=== PATIENT | female | born 1960 | race Caucasian/White ===

== ENCOUNTER 2020-06-26 08:21 | Outpatient (REF) | payer BC, SELFPAY ==
[2020-06-26 09:31] LABS: Alanine Aminotransferase 21 U/L (0-31); Albumin Level 4.3 g/dL (3.5-5.0); Alkaline Phosphatase 111 U/L (39-117); Anion Gap 12 (12-20); Aspartate Amino Transferase 17 U/L (5-31); Bilirubin Total 0.3 mg/dL (0.0-1.0); Blood Urea Nitrogen 18 mg/dL (9-16); Calcium 8.9 mg/dL (8.4-10.2); Carbon Dioxide 28 mmol/L (22-29); Chloride 108 mmol/L (96-108); Cholesterol 201 mg/dL; Estimated Glomerular Filt Rate > 60; Glucose Fasting 99 mg/dL (60-99); HDL Cholesterol 46 mg/dL; LDL Cholesterol Calculated 128 mg/dl; Potassium 5.5 mmol/l (3.3-5.1); Sodium 142 mmol/L (135-145); Total Protein 6.6 g/dL (6.5-8.0); Triglycerides 135 mg/dL
[2020-06-26 09:34] LABS: Estimated Average Glucose 94 mg/dL; Hemoglobin A1c % 4.9 %
[2020-06-26 09:50] LABS: TSH reflex Free T4 0.67 mIU/mL (0.32-4.0); Vitamin D 25-OH Total 23.2 ng/mL (>30)
== END 2020-06-26 08:22 | disposition home or self-care (01) ==
LOC: HO.LAB 08:21
PROVIDERS: PCP Nurse Practitioner Family; Visit Provider Nurse Practitioner Family
DX: E78.5 Hyperlipidemia, unspecified (principal); M85.80 Other specified disorders of bone density and structure, unspecified site; Z13.29 Encounter for screening for other suspected endocrine disorder; Z13.1 Encounter for screening for diabetes mellitus
CPT/HCPCS: 80053; 80061; 82306; 83036; 84443

== ENCOUNTER 2020-07-24 08:22 | Outpatient (REF) | payer BC, SELFPAY ==
[2020-07-24 09:26] LABS: MANUAL DIFF FLAG NO
[2020-07-24 09:32] LABS: Basophils Absolute Auto 0.1 X10*3/uL (0.0-0.2); Basophils Percent Auto 1.2 % (0-2); Eosinophils Absolute Auto 0.6 X10*3/uL (0.0-0.4); Eosinophils Percent Auto 6.9 % (0-4); Hematocrit 43.2 % (37-47); Hemoglobin 13.8 g/dl (12.0-16.0); Imm Gran Abs Auto 0.07 X10*3/uL (0.00-0.03); Imm Gran Pct Auto 0.9 % (0.0-0.4); Lymphocytes Absolute Auto 1.3 X10*3/uL (1.2-4.9); Lymphocytes Percent Auto 16.2 % (20-40); Mean Corpuscular HGB Conc 31.9 g/dl (31.0-35.0); Mean Corpuscular Hemoglobin 30.7 pg (27.0-33.0); Mean Corpuscular Volume 96.2 fL (80-98); Mean Platelet Volume 9.9 fL (9.4-12.3); Monocytes Absolute Auto 0.5 X10*3/uL (0.1-1.2); Monocytes Percent Auto 6.2 % (2-11); Neutrophils Absolute Auto 5.6 X10*3/uL (2.0-8.3); Neutrophils Percent Auto 68.6 % (45-73); Platelet Count 371 X10*3/uL (160-400); Red Blood Count 4.49 X10*6/uL (4.20-5.50); Red Cell Distribution Width 13.2 % (11.0-16.0); White Blood Count 8.1 X10*3/uL (4.8-10.8)
[2020-07-24 10:21] LABS: Anion Gap 15 (12-20); Blood Urea Nitrogen 17 mg/dL (9-16); Calcium 9.4 mg/dL (8.4-10.2); Carbon Dioxide 24 mmol/L (22-29); Chloride 109 mmol/L (96-108); Estimated Glomerular Filt Rate > 60; Ferritin 136 ng/mL (10-250); Glucose Fasting 101 mg/dL (60-99); Iron 130 mcg/dL (30-160); Percent Iron Saturation 47 % (15-50); Sodium 143 mmol/L (135-145); Total Iron Binding Capacity 277 mcg/dL (228-428); Unsaturated Iron Binding 147 ug/dL
[2020-07-26 09:26] LABS: Vitamin B12 639 pg/mL (200-900)
== END 2020-07-24 08:23 | disposition home or self-care (01) ==
LOC: HO.LAB 08:22
PROVIDERS: PCP Nurse Practitioner Family; Visit Provider Nurse Practitioner Family
DX: R53.83 Other fatigue (principal); Z00.00 Encounter for general adult medical examination without abnormal findings; E87.5 Hyperkalemia
CPT/HCPCS: 36415; 80048; 82607; 82728; 83540; 85025

== ENCOUNTER 2020-11-19 07:58 | Outpatient (REF) | payer BC, SELFPAY ==
--- NOTE | 2020-11-19 10:12 | MHC.AU.ANO ---
Adult Audiological Evaluation Date of Visit: 11/19/20 Reason for Appointment: Patient reports that shortly after her second Pfizer COVID-19 vaccine, she developed bilateral tinnitus. The tinnitus is constant and bothersome. It has not subsided since it began 5 weeks ago. Patient reports a long-standing history of hearing concerns. She has found that it is starting to impact her job and family. 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 She had her hearing tested 2 years ago at [facility] and was told that she would soon need hearing aids. Does patient feel they have a hearing loss?: Yes If Yes, Which Ear?: Both Ears Hearing Handicap Inventory: HHIE SCORE: 20 Based on HHIE score, patient has: Mild to moderate perceived hearing handicap Ear History: Ear Deformity: None Reported Recent Ear Drainage: None Reported Recent Ear Pain: None Reported Recent Ear Infections: Has had ear infections as an adult, but none recently Ear Infections in Childhood: Yes, patient reports tympanic membrane rupture as a baby History of Ear Wax Buildup: None Reported Bothersome Tinnitus/Ringing/Noises in Ears: Both Ears Ear used on the phone: Right Ear Blocked/Full Sensation in Ear(s): None Reported History of occupational noise exposure?: Yes: Call Center- 10 Years History: No Medical History: Medical History: Polycythemia, Migraines, Stroke 6 years ago, Tonsillectomy as a child, Gastric Bypass, Back Surgery Medication List: Omeprozole, Ritalin, Topamax, Gabapentin, Linzess, Aspirin, Soma, Vitamin D Otoscopy: Right Ear: Unremarkable Left Ear: Unremarkable Tympanometry: Tympanometry performed due to: To assess integrity of the middle ear system Right Ear: Normal Middle Ear System (Type A) Left Ear: Hypercompliant Middle Ear System (Type Ad) Acoustic Reflexes: Screening Ipsilateral Reflex Probe Right Ear: Screening Ipsilateral Reflex Present at 1000 Hz Probe Left Ear: Screening Ipsilateral Reflex Present at 1000 Hz Otoacoustic Emissions Frequency Range Used: 1.6-8 kHz Right Ear Results: Present 1.6-3.2 kHz, Reduced/Absent 3.6-8 kHz Analysis: Reduced/Absent emissions suggest cochlear dysfunction Results are consistent with degree and configuration of hearing loss Left Ear Results: Present 1.6-3.2 kHz, Reduced/Absent 3.6-8 kHz Analysis: Reduced/Absent emissions suggest cochlear dysfunction Results are consistent with degree and configuration of hearing loss Hearing Evaluation: Transducer(s) Used: Insert Earphones Method: Conventional Audiometry Stimuli Used: Pure Tones Right Ear: Description of Hearing: Mild to moderately-severe sensorineural hearing loss Left Ear: Description of Hearing: Mild to moderately-severe sensorineural hearing loss Speech Recognition Threshold (SRT): Method Used: Recorded Lists Stimuli Used: Spondee Words Right Ear: 40 dBHL Left Ear: 40 dBHL Word Discrimination: Method: Recorded Lists Word Lists Used: NU-6 Right Ear: 100% at 60 dBHL Left Ear: 100% at 60 dBHL Interpretation of Results: Patients with this degree of hearing loss often find that they have difficulty understanding others if there is noise in the area, or if the person speaking is not directly in front of them. They may also find that the quality of sound seems more muffled or dull. Often people find themselves saying I heard you, but I didn't quite make out what you said. Conversations that take place in quiet settings, from a close distance, and [id number] are the best scenario for maximum speech understanding. Recommendations: Audiological re-evaluation in one year. Trial with amplification is recommended. Strategies that may help manage tinnitus include: -Use of masking sounds. Examples include fans, white noise machines, nature sounds, music, TV, etc. There are tinnitus apps for smart phones that offer a variety of masking noises. -Research shows that Cognitive Behavior Therapy (CBT) can help re-train the brain to shift focus away from the tinnitus and manage the stress associated with it. Follow-up with ENT may be warranted to discuss the onset of tinnitus after the second COVID-19 vaccine. Patient was given contact information for [place] [employer] [facility] She plans to contact them to determine eligibility. If approved, she is welcome to return for a hearing aid evaluation to further discuss amplification options. The website is [email or web address] Diagnosis: Primary Diagnosis: H90.3 Bilateral Sensorineural Hearing Loss Secondary Diagnosis: H93.13 Tinnitus, Bilateral Services Performed: Comprehensive Audiological Evaluation (CPT 15861), Limited Otoacoustic Emissions (CPT 82028), Tympanometry (CPT 25273) Signature: Provider: Maryellen Bruce, [facility]
== END 2020-11-19 07:59 | disposition home or self-care (01) ==
LOC: HO.SH 07:58
PROVIDERS: Visit Provider Nurse Practitioner Family
DX: H90.3 Sensorineural hearing loss, bilateral (principal); H93.13 Tinnitus, bilateral
CPT/HCPCS: 92557; 92567; 92587

== ENCOUNTER 2021-02-09 13:49 | Outpatient (REF) | payer SELFPAY | END 2021-02-09 13:50 | disposition home or self-care (01) | LOC: HO.HAP 13:49 | PROVIDERS: Visit Provider Nurse Practitioner Family | DX: Z13.89 Encounter for screening for other disorder (principal) ==

== ENCOUNTER 2021-03-17 10:20 | Outpatient (REF) | payer SELFPAY ==
--- NOTE | 2021-03-21 08:18 | MHC.AU.HFA ---
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 She has been unable to connect properly with the Phonak Audeo P 70-13T aids tiffany to continual loss of computer signal through the hearing aid. Ran feedback test with excellent results. Performed Real Ear measurements making adjustments to better meet targets at 100%. The Real Ear test results are much better compared to the Audeo results. Both aids are causing discomfort in the faceplate/apperture area (tragus). Spoke with Lety in Phonak PCR regarding options for remake. Decided building the aids out being careful to not bring out so far as to cause patient's work headset to touch the aids. In the meantime, changed domes for both Audeo aids to small closed with improved comfort until remakes are in. Recommendations: Schedule appointment when remakes in Diagnosis Code(s): Primary Diagnosis: H90.3 Bilateral Sensorineural Hearing Loss Signature: Provider: Cindy Bojorquez CCC-A
== END 2021-03-17 10:21 | disposition home or self-care (01) ==
LOC: HO.HAP 10:20
PROVIDERS: Visit Provider Nurse Practitioner Family
DX: Z13.89 Encounter for screening for other disorder (principal)

== ENCOUNTER 2021-03-31 09:20 | Outpatient (REF) | payer SELFPAY ==
--- NOTE | 2021-03-31 10:40 | MHC.AU.HFU ---
Hearing Instrument Follow-Up- Binaural Date of Visit: 03/31/21 Right Ear: Travel Services Professional: Phonak Model: Virto M 70-10 NW O Serial Number: [id number] Repair Warranty: 04/12/2024 Battery Size: 10 Color: [place] Type of Wax Guard: CeruStop Dispensed By: [facility] Date of Fittin03/31/2021 Left Ear: Travel Services Professional: Phonak Model: Virto M 70-10 NW O Serial Number: [id number] Repair Warranty: 04/12/2024 Loss and Damage Warranty: Battery Size: 10 Color: [place] Type of Wax Guard: CeruStop Dispensed By: [facility] Date of Fittin03/31/2021 Follow-Up Summary: Remakes of CIC aids fit picking up 03/21/21 settings and re-running feedback test with good results. Sound quality was too loud when set at 100% target. Decreased to 80% at patient's reported comfort level. Patient reports she is not experiencing the pain she felt at last visit before the remake; however, there is still a lot of pressure from the aids. Discussed how the CIC aids are a hard material and fill the canals more than the domes, as well as the sharp curve of the canals will feel very different compared to the REYNA style with domes. Patient will try and scheduled F/U. [facility] AND LAURA FOSTER ON Joanne HOLGUIN' DESK IF FURTHER REMAKE IS NEEDED. WILL RETURN FOR CREDIT AND CONTACT [facility] FOR THE BECK DIFFERENCE WHEN PATIENT KNOWS IF KEEPING CICs. Recommendations: F/U scheduled for 04/14/21 Diagnosis Code(s): Primary Diagnosis: H90.3 Bilateral Sensorineural Hearing Loss Services Performed: REYES Non-Quantity Charges: HANC: NonBillable Event Signature: Provider: JOHANNY Wills
== END 2021-03-31 09:21 | disposition home or self-care (01) ==
LOC: HO.HAP 09:20
PROVIDERS: Visit Provider Nurse Practitioner Family
DX: Z13.89 Encounter for screening for other disorder (principal)

== ENCOUNTER 2021-04-14 12:50 | Outpatient (REF) | payer SELFPAY ==
--- NOTE | 2021-04-14 15:10 | MHC.AU.HFU ---
Hearing Instrument Follow-Up- Binaural Date of Visit: 04/14/21 Right Ear: Bottom Worker: Phonak Model: Audeo P 70-13T Serial Number: [id number] Repair Warranty: 04/19/2024 Battery Size: 13 Color: [place] Sba Underwriter: #0 M Type of Dome: Small Vented Type of Wax Guard: CeruShield Dispensed By: [facility] Date of Fittin01/26/2021 Left Ear: Bottom Worker: Phonak Model: Audeo P 70-13T Serial Number: [id number] Repair Warranty: 04/19/2024 Battery Size: 13 Color: [place] Sba Underwriter: #0 M Type of Dome: Small Vented Type of Wax Guard: CeruShield Dispensed By: [facility] Date of Fittin01/26/2021 Follow-Up Summary: Patient continues to experience significant discomfort with the CIC style, right ear greater than left and she reports the aids sound quality is not as clear and she cannot hear sounds behind her as she did with the REYNA style. Has done better using the phone system at work with the new headphones. Discussed options including trying the Titanium model or going back to the REYNA style. Patient wants to go back to the REYNA style, so fit the original Audeo P 70-13T aids with #0 M receivers and small vented domes for both ears, as well as the Siddharth Select. Verified settings and connection to cell phone. Patient will try with her current headphones and showed how to place the earphones over the microphones of the hearing aids. Patient will try and also work with her employer to make sure she is able to perform her duties. Return the Virto M 70-10 NW aids for credit. Recommendations: Recommendations (Other): Patient will call the office to discuss how she is doing and if having specific difficulties, she will schedule appointment. Diagnosis Code(s): Primary Diagnosis: H90.3 Bilateral Sensorineural Hearing Loss Signature: Provider: Michell Casillas, [facility]
== END 2021-04-14 12:51 | disposition home or self-care (01) ==
LOC: HO.HAP 12:50
PROVIDERS: Visit Provider Nurse Practitioner Family
DX: Z13.89 Encounter for screening for other disorder (principal)

== ENCOUNTER 2021-08-18 10:27 | Outpatient (REF) | payer BC, SELFPAY ==
[2021-08-18 14:32] LABS: MANUAL DIFF FLAG NO
[2021-08-18 14:48] LABS: Basophils Absolute Auto 0.1 X10*3/uL (0.0-0.2); Basophils Percent Auto 1.3 % (0-2); Eosinophils Absolute Auto 0.4 X10*3/uL (0.0-0.4); Eosinophils Percent Auto 4.8 % (0-4); Hematocrit 46.6 % (37.0-47.0); Hemoglobin 15.3 g/dl (12.0-16.0); Imm Gran Abs Auto 0.05 X10*3/uL (0.00-0.03); Imm Gran Pct Auto 0.6 % (0.0-0.4); Lymphocytes Absolute Auto 1.8 X10*3/uL (1.2-4.9); Lymphocytes Percent Auto 21.2 % (20-40); Mean Corpuscular HGB Conc 32.8 g/dl (31.0-35.0); Mean Corpuscular Volume 94.5 fL (80.0-98.0); Mean Platelet Volume 10.8 fL (9.4-12.3); Monocytes Absolute Auto 0.6 X10*3/uL (0.1-1.2); Neutrophils Absolute Auto 5.4 x10*3/uL (2.0-8.3); Neutrophils Percent Auto 65.1 % (45-73); Platelet Count 291 X10*3/uL (160-400); Red Blood Count 4.93 X10*6/uL (4.20-5.50); Red Cell Distribution Width 13.9 % (11.0-16.0); White Blood Count 8.3 X10*3/uL (4.8-10.8)
[2021-08-18 15:02] LABS: Alanine Aminotransferase 33 U/L (0-31); Albumin Level 4.2 g/dL (3.5-5.0); Alkaline Phosphatase 114 U/L (39-117); Anion Gap 9 (12-20); Aspartate Amino Transferase 20 U/L (5-31); Bilirubin Total 0.5 mg/dL (0.0-1.0); Blood Urea Nitrogen 15 mg/dL (9-16); Calcium 9.1 mg/dL (8.4-10.2); Carbon Dioxide 26 mmol/L (22-29); Chloride 110 mmol/L (96-108); Cholesterol 244 mg/dL; Estimated Glomerular Filt Rate > 60; Glucose Fasting 83 mg/dL (60-99); HDL Cholesterol 41 mg/dL; Iron 101 mcg/dL (30-160); LDL Cholesterol Calculated 162 mg/dl; Percent Iron Saturation 28 % (15-50); Sodium 141 mmol/L (135-145); Total Iron Binding Capacity 363 mcg/dL (228-428); Total Protein 6.8 g/dL (6.5-8.0); Triglycerides 205 mg/dL; Unsaturated Iron Binding 262 ug/dL
[2021-08-18 15:22] LABS: TSH reflex Free T4 1.04 uIU/mL (0.32-4.0); Vitamin D 25-OH Total 30.7 ng/mL (>30)
[2021-08-18 15:23] LABS: Ferritin 69 ng/mL (10-250)
== END 2021-08-18 10:28 | disposition home or self-care (01) ==
LOC: HO.HMGCLDS 10:27
PROVIDERS: PCP Nurse Practitioner Family; Visit Provider Nurse Practitioner Family
DX: Z00.00 Encounter for general adult medical examination without abnormal findings (principal); D64.9 Anemia, unspecified; Z78.0 Asymptomatic menopausal state
CPT/HCPCS: 36415; 80053; 80061; 82306; 82728; 83540; 84443; 85025

== ENCOUNTER 2021-09-01 14:23 | Outpatient (REF) | payer BC, SELFPAY ==
[2021-09-01 14:49] LABS: Binax Internal Control QC Valid; Binax Now Covid-19 Ag Negative (Negative)
== END 2021-09-01 14:24 | disposition home or self-care (01) ==
LOC: HO.HMGCLDS 14:23
PROVIDERS: Visit Provider Physician Assistant Medical
DX: Z13.89 Encounter for screening for other disorder (principal)

== ENCOUNTER → 2021-09-23 09:50 | Outpatient (BNVA) | payer BC, SELFPAY | PROVIDERS: PCP Nurse Practitioner Family; Visit Provider Internal Medicine Pulmonary Disease | DX: R06.02 Shortness of breath (principal) | CPT/HCPCS: 94618 ==

== ENCOUNTER → 2021-09-29 08:05 | Outpatient (REF) | payer BC, SELFPAY ==
--- NOTE | 2021-09-29 08:09 | CA_ITS ---
Transthoracic Echocardiogram Patient (Last, First, Middle): Elizabeth Alvarez J Gender: Female Date of : 1960 Age: 61 Procedure Date: 09/29/2021 Procedure Type: Transthoracic Echocardiogram Location: OP Height: 160.02 cm Weight: 81.65 kg BSA: 1.85 m2 Heart Rate: bpm BP: 135 / 94 mmHg Economic Developer: BHAKTI Referring MD: Tommy Samuel MD Doctor Of Radiology: Tyson Rowan MD Symptoms: R06.02 - Shortness of breath Study Quality: Fair ECG Rhythm: Sinus Conclusions: - 1. Normal LV systolic function with grade 1 diastolic dysfunction 2. Normal cardiac valvular Doppler 3. Normal RV systolic pressure 4. No gross pericardial effusion Findings Left Ventricle Normal left ventricular size, thickness, and systolic function. The visually estimated ejection fraction is between 65-70%. Spectral Doppler is indicative of an impaired relaxation filling pattern. E/E prime ratio is <8, consistent with normal filling pressures. Evidence suggests grade I (mild) diastolic dysfunction. There is mild septal asymmetric hypertrophy. Right Ventricle Normal right ventricular cavity size and systolic function. Atria Both atria are normal in size. There is no evidence of interatrial shunt. Aortic Valve Normal aortic valve structure and function. There is no aortic valve stenosis. There is no aortic valve regurgitation. Mitral Valve Normal mitral valve structure and function. There is trace mitral valve regurgitation. There is no mitral valve stenosis. Pulmonic Valve The pulmonic valve was not well visualized. Tricuspid Valve Normal tricuspid valve structure. There is trace tricuspid valve regurgitation. The right ventricular systolic pressure is 24 mmHg. Normal right atrial pressure. There is no evidence of pulmonary hypertension. Great Vessels All visible segments of the aorta are normal in size. The pulmonary artery was not well visualized. Venous The inferior vena cava is normal in size and collapses greater than 50% with inspiration. Pericardium/Pleural There is no evidence of pericardial effusion. Measurements 2D Linear Measurements IVSd: 1.26 0.6-0.9/0.6-1.0 cm LVIDd: 4.46 3.9-5.3/4.2-5.9 cm LVIDd Index: 2.41 2.4-3.2/2.2-3.1 cm/m2 LVIDs: 2.89 2.0-3.6 cm LVPWd: 0.82 0.7-1.1 cm Ao Root: 2.90 2.1-3.5 cm LA Diam: 3.60 2.7-3.8/3.0-4.0 cm LAIDs Index: 1.95 1.5-2.3 cm/m2 LV Mass: 199.05 67-162/88-224 g LV Mass Index: 107.59 43-95/49-115 g/m2 LVOT Diam: 2.10 3.0+(-)1.3 cm 2D Systolic Function EF 4C: 68.60 >55% EF 2C: 68.90 >55% EF BiP: 67.90 >55% Mitral Valve E'Medial: 6.64 Aortic Valve AoV Pk Hank: 1.57 AoV Mn Hank: 1.09 AoV VTI: 0.32 AoV Pk Grad: 10.00 Aov Mn Grad: 5.00 AV Cont.VTI: 2.72 LVOT LVOT Pk Hank: 1.17 LVOT Mn Hank: 0.83 LVOT VTI: 0.25 LVOT Pk Grad: 5.00 LVOT Mn Grad: 3.00 LVOT Diam: 2.10 LVOT Area: 3.46 Diastolic Function E'Medial: 6.64 Right Ventricle TAPSE (mm): 21.70 TVS' Hank: 13.60 Tricuspid Valve TR Pk Hank: 2.27 TR Pk Grad: 21.00 RA Press: 3.00 RVSP: 24.00 Great Vessels Aorta Ao Root-2D: 2.90 2.0-3.7 cm Ao Asc: 2.90 2.1-3.4 cm Ao Arch: 2.80 Updated in Other Vendor System with Status of Final Tyson Rowan MD electronically signed on 09/30/2021 12:48:12 PM with status of Final
== END ==
LOC: HO.CARD 08:05
PROVIDERS: PCP Nurse Practitioner Family; Visit Provider Internal Medicine Pulmonary Disease
DX: R06.02 Shortness of breath (principal)
CPT/HCPCS: 93306

== ENCOUNTER 2021-10-17 14:00 | Outpatient (REF) | payer BC, SELFPAY ==
--- NOTE | 2021-10-17 17:18 | PFT_ITS ---
FLOWS: FEV1 106% of predicted at 2.62 L. FVC 90% predicted at 2.88 L. FEV1 to FVC ratio of 0.91. No bronchodilator response except in small to medium airways. LUNG VOLUMES: Total lung capacity 92% of predicted at 4.54 L. Residual volume 76% of predicted at 1.47 L. Slow vital capacity 103% of predicted at 3.06 L. Expiratory reserve volume 102% of predicted at 0.85 L. Diffusion capacity is moderately decreased, diffusion capacity adjust to being mildly decreased after correction for alveolar ventilation. IMPRESSION: No obstructive or restrictive ventilatory defect. No bronchodilator response except in small to medium airways. Decreased diffusion capacity suggests emphysema. Tommy Samuel MD AP/MODL / [id number]
== END 2021-10-17 14:01 | disposition home or self-care (01) ==
LOC: HO.RESP 14:00
PROVIDERS: PCP Nurse Practitioner Family; Visit Provider Internal Medicine Pulmonary Disease
DX: R06.00 Dyspnea, unspecified (principal); R06.02 Shortness of breath
CPT/HCPCS: 94060; 94727; 94729

== ENCOUNTER 2021-10-26 16:36 | Outpatient (REF) | payer BC, SELFPAY ==
--- NOTE | ~2021-10-26 | CT_ITS ---
EXAMINATION: CT CHEST WITHOUT CONTRAST CLINICAL INFORMATION: Shortness of breath COMPARISON: CT 06/03/2014 TECHNIQUE: Multidetector volumetric CT imaging of the chest was done. Axial MIP volume rendering provided. Sagittal and coronal reformatted images were obtained. This CT examination was performed using dose optimization techniques as appropriate, variously including the following: *Automated exposure control *Adjustment of mA and/or kV according to patient size (this includes techniques or standardized protocols for targeted exams where dose is matched to indication/reason for exam; i.e. extremities or head) *Use of iterative reconstruction technique DLP: 179 mGy-cm FINDINGS: LUNGS: There is a 6 mm right lower lobe nodule abutting the pleura (image 361, series 7) which is unchanged from the prior study of 06/03/2014. Similarly, there is an unchanged 2 mm left lower lobe nodule abutting the pleura (image 270, series 7) and a 3 to 4 mm right middle lobe opacity contacting the anterior pleura (image 380, series 7). The lungs are otherwise clear. There is no pleuroparenchymal mass, consolidation, discrete suspicious nodule or ground-glass attenuation. MEDIASTINUM: The heart is not enlarged. No pericardial effusion or pericardial thickening. There are atherosclerotic calcifications of the coronary arteries implying at least some degree of coronary artery disease. There are no pathologically enlarged mediastinal or hilar lymph nodes seen. PLEURA: There is no pleural effusion. No pleural mass or thickening. AXILLA: No lymphadenopathy. UPPER ABDOMEN: The incompletely visualized upper abdomen is notable for surgical changes relating to bariatric surgery and cholecystectomy. There is colonic diverticulosis without inflammatory change to suggest diverticulitis. OSSEOUS STRUCTURES: Unremarkable. CT/CT chest wo con IMPRESSION: Stable appearance of subcentimeter bilateral pulmonary nodules which are unchanged on prior studies dating to at least 06/03/2014. No new nodules identified. Atherosclerotic calcification of the coronary arteries implying at least some degree of coronary artery disease. Fleischner guidelines were followed.
== END 2021-10-26 16:37 | disposition home or self-care (01) ==
LOC: HO.CT 16:36
PROVIDERS: Visit Provider Internal Medicine Pulmonary Disease
DX: R06.02 Shortness of breath (principal)
CPT/HCPCS: 71250

== ENCOUNTER → 2021-11-03 14:07 | Outpatient (BNVA) | payer BC, SELFPAY | PROVIDERS: PCP Nurse Practitioner Family; Visit Provider Internal Medicine Pulmonary Disease | DX: R06.02 Shortness of breath (principal) ==

== ENCOUNTER 2022-01-06 08:25 | Outpatient (REF) | payer BC, SELFPAY ==
[2022-01-06 11:06] LABS: MANUAL DIFF FLAG NO
[2022-01-06 11:19] LABS: Basophils Absolute Auto 0.1 X10*3/uL (0.0-0.2); Eosinophils Absolute Auto 0.6 X10*3/uL (0.0-0.4); Eosinophils Percent Auto 7.3 % (0-4); Hematocrit 44.4 % (37.0-47.0); Hemoglobin 14.2 g/dl (12.0-16.0); Imm Gran Abs Auto 0.05 X10*3/uL (0.00-0.03); Imm Gran Pct Auto 0.6 % (0.0-0.4); Lymphocytes Absolute Auto 1.4 X10*3/uL (1.2-4.9); Mean Corpuscular Hemoglobin 29.8 pg (27.0-33.0); Mean Corpuscular Volume 93.3 fL (80.0-98.0); Mean Platelet Volume 11.1 fL (9.4-12.3); Monocytes Absolute Auto 0.6 X10*3/uL (0.1-1.2); Monocytes Percent Auto 6.7 % (2-11); Neutrophils Percent Auto 68.4 % (45-73); Platelet Count 306 X10*3/uL (160-400); Red Blood Count 4.76 X10*6/uL (4.20-5.50); Red Cell Distribution Width 13.5 % (11.0-16.0); White Blood Count 8.8 X10*3/uL (4.8-10.8)
[2022-01-06 11:38] LABS: Appearance Urine HAZY; Color Urine YELLOW; Glucose Urine UA NEG (NEG); Leukocyte Esterase Urine NEG (NEG); Nitrite Urine NEG (NEG); PH 7.5 (5.0-8.0); Urine Blood NEG (NEG); Urine Ketones NEG (NEG); Urine Protein NEG (NEG-TRACE)
[2022-01-06 11:45] LABS: Alanine Aminotransferase 26 U/L (0-31); Albumin Level 4.1 g/dL (3.5-5.0); Alkaline Phosphatase 109 U/L (39-117); Anion Gap 10 (12-20); Aspartate Amino Transferase 20 U/L (5-31); Bilirubin Total 0.5 mg/dL (0.0-1.0); Blood Urea Nitrogen 18 mg/dL (9-16); Calcium 9.2 mg/dL (8.4-10.2); Carbon Dioxide 26 mmol/L (22-29); Chloride 110 mmol/L (96-108); Cholesterol 206 mg/dL; Estimated Glomerular Filt Rate > 60; Glucose Fasting 98 mg/dL (60-99); HDL Cholesterol 38 mg/dL; Iron 122 mcg/dL (30-160); LDL Cholesterol Calculated 136 mg/dl; Percent Iron Saturation 35 % (15-50); Potassium 4.1 mmol/L (3.3-5.1); Sodium 142 mmol/L (135-145); Total Iron Binding Capacity 344 mcg/dL (228-428); Total Protein 6.5 g/dL (6.5-8.0); Triglycerides 162 mg/dL; Unsaturated Iron Binding 222 ug/dL
[2022-01-06 11:49] LABS: Ferritin 54 ng/mL (10-250); TSH reflex Free T4 0.87 uIU/mL (0.32-4.0)
[2022-01-06 11:57] LABS: Folate 3.3 ng/mL (> or = 4.0); Vitamin B12 572 pg/mL (200-900)
[2022-01-06 12:14] LABS: Rheumatoid Factor < 15.0 IU/mL (<15.0)
[2022-01-07 09:07] LABS: Lyme Abs Screen <0.90 index
[2022-01-08 13:56] LABS: Anti Nuclear Antibody Screen NEGATIVE (NEGATIVE)
[2022-01-10 15:01] LABS: Cyclic Citrullinated Peptide <16 UNITS
[2022-01-10 21:06] LABS: Antibody to SS-A Antigen <1.0 NEG AI (<1.0 NEG); Antibody to SS-B Antigen <1.0 NEG AI (<1.0 NEG)
== END 2022-01-06 08:26 | disposition home or self-care (01) ==
LOC: HO.HMGCLDS 08:25
PROVIDERS: Visit Provider Nurse Practitioner Family
DX: Z00.00 Encounter for general adult medical examination without abnormal findings (principal); M25.50 Pain in unspecified joint; J06.9 Acute upper respiratory infection, unspecified; R53.83 Other fatigue; R06.02 Shortness of breath; E78.5 Hyperlipidemia, unspecified; F17.200 Nicotine dependence, unspecified, uncomplicated
CPT/HCPCS: 36415; 80053; 80061; 81003; 82607; 82728; 82746; 83540; 84443; 85025; 86038; 86039; 86200; 86235; 86431; 86617; 86618

== ENCOUNTER → 2022-07-12 | Outpatient (RCR) | payer BC, SELFPAY ==
--- NOTE | 2020-07-28 14:01 | HO.HEMONCTE1 ---
[facility]c Clinic Telehealth - Telehealth Location of Provider rendering services: office Location of Patient: Home Patient Identification confirmed using: Name, : Yes Patient verbally consented to billing insurance company: Yes Patient informed of any privacy concerns related to visit: Yes Medical Summary - Medical Summary Date of Service: 07/28/20 Chief complaint: Scheduled follow-up Medical Summary: Diagnosis: Secondary erythrocytosis in 2013. Iron deficiency without anemia. Patient originally seen by Dr. Alicea in 2013 for erythrocytosis/polycythemia, felt related to smoking. JAK2 mutation was negative. Bone marrow biopsy was negative. She underwent phlebotomies for a few months, developed iron deficiency anemia. She received IV iron infusions. Remote history of gastric bypass surgery. Receives parenteral B12 therapy. Interval History Interval history: This is scheduled visit for patient. She was consented for telephone visit based on COVID-19 pandemic guidelines. She is doing very well and has no complaints today. She had blood work on July 24 and it was normal. Review of Systems - Constitutional Reports no additional constitutional complaints - Cardiovascular Reports no additional cardiovascular complaints - Respiratory Reports no additional respiratory complaints Oncology Screenings - ECOG Performance Status ECOG Performance Status: 0 Home Medications and Allergies Home Medications Medication Instructions Recorded Confirmed Type B12 1 IM Q4W 07/28/20 History calcium 325 mg PO BID 07/28/20 07/28/20 History carisoprodol 07/28/20 History gabapentin 300 mg PO DAILY 07/28/20 07/28/20 History meloxicam 15 mg PO DAILY 07/28/20 07/28/20 History methylphenidate HCl [Ritalin] 10 mg PO QID 07/28/20 07/28/20 History topiramate [Topamax] 200 mg PO DAILY 07/28/20 07/28/20 History Allergies Allergy/AdvReac Type Severity Reaction Status Date / Time acetaminophen Allergy Unknown RASH Unverified 05/06/20 17:26 [From TYLENOL-CODEINE #3] amoxicillin Allergy Unknown Unknown Verified 07/02/20 14:07 clavulanic acid [Augmentin] Allergy Unknown unknown Unverified 07/02/20 14:07 codeine Allergy Unknown RASH Verified 07/02/20 14:07 [From TYLENOL-CODEINE #3] Iodinated Contrast Media Allergy Unknown UNKNOWN Verified 07/02/20 14:07 [IV DYE, IODINE CONTAINING CONTRAST ] Progress Note: A/P (1) Anemia Status: Acute Assessment and plan: 1. This is a 60-year-old woman with previous history of iron deficiency. She has a history of gastric bypass surgery and does not tolerate oral iron. She states that she feels a lot better when she receives intravenous iron. Normal CBC and iron studies on 07/24/2020. Follow-up p.r.n.. - Time Spent With Patient Total time spent is greater than 50% in coordination of care (as documented) at patient's floor/unit and/or counseling patient: less than 15 minutes
--- NOTE | 2020-07-28 14:11 | MHC.HEMONC ---
Televisit today. Summary updated with nurse. Provider spoke with patient. No follow-up needed per provider.
== END | disposition home or self-care (01) ==
LOC: HO.ONC 07-28 13:25
PROVIDERS: Visit Provider Internal Medicine
DX: D50.9 Iron deficiency anemia, unspecified (principal); D75.1 Secondary polycythemia; Z98.84 Bariatric surgery status
CPT/HCPCS: 99213